=== PATIENT | female | born 1980 | race Caucasian/White ===

== ENCOUNTER 2018-12-28 21:14 | Inpatient (IN) | payer OTHER ==
[~2018-12-28] VITALS: Ht 170.2 cm; Wt 76.2 kg
[~2018-12-28 21:14] MED LIST: [UNRECOGNIZED DRUG - REMARK] PO
--- NOTE | 2018-12-28 22:03 | NUR ---
SE RECIBE PTE ALERTA Y ORIENTADA X3 LA CUAL REFIERE VENIR CON DOCUMENTACION EN MANO DE PRE ADMISION BAJO LOS SERVICIOS DEL DR. MCCRAY. PTE CON RESULTADOS DE IMAGENES EN MANO. PTE REFIERE DOLOR LEVE EN COSTADO DERECHO. SE MIDEN S/V A PTE Y SE COLOCA EN AREA DE OBSERVACION PENDIENTE A EVALUACION MEDICA.
--- NOTE | 2018-12-28 22:18 | NUR ---
LOPEZ ORIENTA A PACIENTE SOBRE TRATAMIENTO. [place] MUESTRAS DE LABORATORIO ORDENADAS. CANALIZA CON AREA DE VENOPUNCION VIRIDIANA DE EDEMA O ENROJECIMIENTO. ADMINISTRA MEDICAMENTOS ORDENADOS. SE MANTIENE EN OBSERVACION POR CAMBIOS.
--- NOTE | 2018-12-29 00:43 | NUR ---
PT ALERTA Y ORIENTADA X3 ESFERAS SE RECIBE EN BUTACA. IVLFUIDS Y HEPARIN LOCK PATENTE. PT TOL[place] TX. TRANQUILA Y SIN DIFICULTAD RESPIRATORIA. SE MANTIENE BAJO OBSERVACION POR CAMBIOS EN REGINA. SE OFRECE SHAWN, SE COLOCAN FRENOS Y BARANDAS ARRIBA. EN COMPANIA DE FAMILIAR. PENDIENTE RESULTADOS DE LABORATORIO.
--- NOTE | 2018-12-29 07:00 | NUR ---
SE RECIBE DE TURNO ANTERIOR. PACIENTE ALERTA Y ORIENTADA EN REEMA ESFERAS. BUEN PATRON RESPIRATORIO. PIEL TIBIA AL TACTO. CANALIZACION PATENTE, VIRIDIANA DE EDEMA Y/O ENROJECIMIENTO RECIBIENDO D5W/0.45%NSS @200 ML/HR. PENDIENTE A CONSULTA CON DR MATIAS. SE MANTIENE BAJO OBSERVACION POR CAMBIOS.
[2019-01-04] MEDS ORDERED: TRAMADOL HCL50 MG PO (07:08)
[2019-01-04] MEDS ORDERED: MIRALAX17 GM PO (07:08)
[2019-01-04] MEDS ORDERED: TYLENOL EXTRA500 MG PO (07:08)
== END 2019-01-04 10:56 | disposition home or self-care (01) | DRG 417 ==
LOC: ER 21:14 → MEDI 12-29 13:24 → MEDJ 12-29 13:24 → MEDI 01-04 10:56
PROVIDERS: Surgery; ADMIT Internal Medicine
PROC: BW40ZZZ Ultrasonography of Abdomen (ICD-10-PCS; 2018-12-29)
PROC: BF37ZZZ Magnetic Resonance Imaging (MRI) of Pancreas (ICD-10-PCS; 2018-12-29)
PROC: 0FJD8ZZ Inspection of Pancreatic Duct, Via Natural or Artificial Opening Endoscopic (ICD-10-PCS; 2019-01-02)
PROC: BF11YZZ Fluoroscopy of Biliary and Pancreatic Ducts using Other Contrast (ICD-10-PCS; 2019-01-02)
PROC: BF03YZZ Plain Radiography of Gallbladder and Bile Ducts using Other Contrast (ICD-10-PCS; 2019-01-03)
PROC: 0FT44ZZ Resection of Gallbladder, Percutaneous Endoscopic Approach (ICD-10-PCS; principal; 2019-01-03 21:30)
DX: K80.10 Calculus of gallbladder with chronic cholecystitis without obstruction (principal); K85.10 Biliary acute pancreatitis without necrosis or infection